=== PATIENT | male | born 1995 | race Caucasian/White ===

== ENCOUNTER 2018-06-04 15:17 | Emergency (ER) | payer MEDICAID ==
[~2018-06-04] VITALS: Ht 180.3 cm; Wt 95.3 kg
[2018-06-04 16:08] VITALS: Ht 180.3 cm; Wt 95.3 kg
[2018-06-04 19:00] VITALS: BP 122/72
== END 2018-06-04 19:00 | disposition home or self-care (01) ==
LOC: ED 15:17
DX: S92.321A Displaced fracture of second metatarsal bone, right foot, initial encounter for closed fracture (principal); S63.91XA Sprain of unspecified part of right wrist and hand, initial encounter; W26.8XXA Contact with other sharp object(s), not elsewhere classified, initial encounter; Y93.89 Activity, other specified; Y92.89 Other specified places as the place of occurrence of the external cause; Y99.8 Other external cause status

== ENCOUNTER 2020-02-10 14:42 | Emergency (ER) | payer SELFPAY ==
[~2020-02-10] VITALS: Ht 180.3 cm; Wt 104.3 kg
[2020-02-10 14:52] VITALS: Ht 180.3 cm; Wt 104.3 kg
[2020-02-10 16:02] VITALS: BP 123/63
== END 2020-02-10 15:55 | disposition home or self-care (01) ==
LOC: ED 14:42
DX: S61.212A Laceration without foreign body of right middle finger without damage to nail, initial encounter (principal); W22.8XXA Striking against or struck by other objects, initial encounter; Y93.89 Activity, other specified; Y92.89 Other specified places as the place of occurrence of the external cause; Y99.8 Other external cause status
CPT/HCPCS: 90715; J2001